=== PATIENT | female | born 1970 | race Two or more races ===

== ENCOUNTER 2018-06-03 14:45 | Emergency (ER) | payer OTHER ==
[~2018-06-03] VITALS: Ht 162.6 cm; Wt 81.6 kg
[~2018-06-03 14:45] MED LIST: UNOBMED
[2018-06-03 14:50] VITALS: BP 127/76
[2018-06-03] MEDS ORDERED: LORazepam 1mg tab ORAL ONE (15:15)
[2018-06-03 16:02] LABS: BASOPHILS % (AUTO) 1.2 % (0.0-2.0); HEMATOCRIT 44.7 % (37.0-47.0); HEMOGLOBIN 15.3 G/DL (12.0-16.0); LYMPHOCYTES % (AUTO) 30.6 % (20.0-45.0); MEAN CORPUSCULAR VOLUME 91 FL (80-99); MONOCYTES % (AUTO) 5.2 % (1.0-10.0); NEUTROPHILS % (AUTO) 61.1 % (45.0-75.0); PLATELET COUNT 307 K/UL (150-450); RED CELL DISTRIBUTION WIDTH 11.8 % (11.6-14.8); WHITE BLOOD COUNT 8.3 K/UL (4.8-10.8)
[2018-06-03 16:13] LABS: ALANINE AMINOTRANSFERASE 43 U/L (12-78); ALBUMIN 3.6 G/DL (3.4-5.0); ALBUMIN/GLOBULIN RATIO 0.8 (1.0-2.7); ALKALINE PHOSPHATASE 82 U/L (46-116); ANION GAP 12 mmol/L (5-15); ASPARTATE AMINO TRANSFERASE 27 U/L (15-37); BILIRUBIN,TOTAL 0.5 MG/DL (0.2-1.0); CALCIUM 9.5 MG/DL (8.5-10.1); CARBON DIOXIDE 26 MMOL/L (21-32); CHLORIDE 99 MMOL/L (98-107); CREATININE 0.8 MG/DL (0.55-1.30); POTASSIUM 3.5 MMOL/L (3.5-5.1); SODIUM 137 MMOL/L (136-145)
[2018-06-03] MEDS ORDERED: Haloperidol 5mg/ml Inj IM ONE (16:15)
--- NOTE | 2018-06-03 16:18 | Emergency Room Report ---
History of Present Illness General Chief Complaint: Behavioral Complaint Source: Patient Present Illness HPI Patient present by paramedics Reports behavioral change Patient here gives a fairly clear history she reports that she was working There was an open bottle of Coconut water she did drink some of that Soon after that patient reports different descriptions of sensation of bloating in the air Things happening fast and then slow Patient reports that this felt similar to when patient's described drugs Denies any headache denies any chest pain Patient reports taking antidepressant medications as well Denies any change in medications recently Patient also reports that she was handling a white flour And after shaking the flour she also had a similar sensation of things happening fast and then slow Denies any chest pain she did have some mild palpitations initially Does have started to improve Denies any focal weakness Denies any suicidal or homicidal thoughts Allergies: Coded Allergies: PENICILLINS (Verified Allergy, Unknown, 06/03/18) Patient History Past Medical History: see triage record Pertinent Family History: none Last Menstrual Period: 05/2018 Now: No Reviewed Nursing Documentation: PMH: Agreed; PSxH: Agreed Nursing Documentation-PMH Hx Hypertension: Yes History Of Psychiatric Problem: Yes - anxiety Review of Systems All Other Systems: negative except mentioned in HPI Physical Exam Vital Signs Date Time Temp Pulse Resp B/P (MAP) Pulse Ox O2 Delivery O2 Flow Rate FiO2 06/03/18 14:31 98.6 120 18 169/105 99 Room Air Sp02 EP Interpretation: reviewed, normal General Appearance: no apparent distress - However intermittently the patient cries out becomes tearful Head: normocephalic, atraumatic Eyes: bilateral eye PERRL, bilateral eye EOMI ENT: hearing grossly normal, normal pharynx Neck: supple Respiratory: lungs clear Cardiovascular #1: regular rate, rhythm Gastrointestinal: non tender, soft Musculoskeletal: normal inspection Neurologic: alert, oriented x3, responsive Psychiatric: other - Patient becomes tearful, cries out, however denies any suicidal or homicidal thoughts Skin: no rash, warm/dry Lymphatic: no adenopathy Medical Decision Making Diagnostic Impression: Primary Impression: Adverse reaction to cannabis ER Course Multiple differentials considered patient had fairly extensive blood work and drug testing performed Patient does show positive marijuana Which is consistent with some of her description and sensations Not clear if the exposure was from the open bottle that she drank at work Versus other use Patient was otherwise seen by psychiatry as well Cleared from psychiatric aspect patient continues not to have any suicidal or homicidal thoughts Medically patient has appropriate findings Appears to be having a reaction to marijuana Patient was recommended for further medications through psychiatry as well these were provided Patient is allowed to rest attempts are being made to contact family Labs Test 06/03/18 15:20 06/03/18 15:35 White Blood Count 8.3 K/UL (4.8-10.8) Red Blood Count 4.90 M/UL (4.20-5.40) Hemoglobin 15.3 G/DL (12.0-16.0) Hematocrit 44.7 % (37.0-47.0) Mean Corpuscular Volume 91 FL (80-99) Mean Corpuscular Hemoglobin 31.2 PG (27.0-31.0) Mean Corpuscular Hemoglobin Concent 34.2 G/DL (32.0-36.0) Red Cell Distribution Width 11.8 % (11.6-14.8) Platelet Count 307 K/UL (150-450) Mean Platelet Volume 5.9 FL (6.5-10.1) Neutrophils (%) (Auto) 61.1 % (45.0-75.0) Lymphocytes (%) (Auto) 30.6 % (20.0-45.0) Monocytes (%) (Auto) 5.2 % (1.0-10.0) Eosinophils (%) (Auto) 2.0 % (0.0-3.0) Basophils (%) (Auto) 1.2 % (0.0-2.0) Sodium Level 137 MMOL/L (136-145) Potassium Level 3.5 MMOL/L (3.5-5.1) Chloride Level 99 MMOL/L (98-107) Carbon Dioxide Level 26 MMOL/L (21-32) Anion Gap 12 mmol/L (5-15) Blood Urea Nitrogen 14 mg/dL (7-18) Creatinine 0.8 MG/DL (0.55-1.30) Estimat Glomerular Filtration Rate > 60 mL/min (>60) Glucose Level 136 MG/DL (74-106) Calcium Level 9.5 MG/DL (8.5-10.1) Total Bilirubin 0.5 MG/DL (0.2-1.0) Aspartate Amino Transf (AST/SGOT) 27 U/L (15-37) Alanine Aminotransferase (ALT/SGPT) 43 U/L (12-78) Alkaline Phosphatase 82 U/L (46-116) Total Protein 8.1 G/DL (6.4-8.2) Albumin 3.6 G/DL (3.4-5.0) Globulin 4.5 g/dL Albumin/Globulin Ratio 0.8 (1.0-2.7) Salicylates Level 0.8 ug/mL (2.8-20) Acetaminophen Level < 2 MCG/ML (10-30) Serum Alcohol 3 mg/dL Urine Opiates Screen Negative (NEGATIVE) Urine Barbiturates Screen Negative (NEGATIVE) Phencyclidine (PCP) Screen Negative (NEGATIVE) Urine Amphetamines Screen Negative (NEGATIVE) Urine Benzodiazepines Screen Negative (NEGATIVE) Urine Cocaine Screen Negative (NEGATIVE) Urine Marijuana (THC) Screen Positive (NEGATIVE) Last Vital Signs Date Time Temp Pulse Resp B/P (MAP) Pulse Ox O2 Delivery O2 Flow Rate FiO2 06/03/18 14:50 86 18 Room Air 06/03/18 14:50 98.6 127/76 100 Status: improved Disposition: HOME, SELF-CARE Condition: Improved Referrals: [facility],REFERRING (PCP) Additional Instructions: Patient is provided with the discharge instructions notified to follow up with primary doctor in the next 2-3 days otherwise return to the er with any worsening symptoms. Please note that this report is being documented using [employer] technology. This can lead to erroneous entry secondary to incorrect interpretation by the dictating instrument. Dina Berg DO Jun 03, 2018 16:18
[2018-06-03 16:20] LABS: BLOOD UREA NITROGEN 14 mg/dL (7-18)
[2018-06-03 17:00] VITALS: BP 102/57
--- NOTE | 2018-06-03 19:45 | Consultation ---
History of Present Illness General Chief Complaint: Behavioral Complaint Present Illness HPI the patient is a 47 yo female with no significant medical hx present by paramedics for behavioral change. The patient reports that she was working There was an open bottle of Coconut water in the fridge and she did drink some of that shortly there after the patient reports change of sensation of bloating in the air shortness of breath agitation. the pt was screaming and crying stated that she has an episode like this at age 17 when she first used mj. the pt stated maybe there was mj in the juice. the pt denied st. she was paranoid and at some point she became tangential and started to yell. no si/hi Allergies: Coded Allergies: PENICILLINS (Verified Allergy, Unknown, 06/03/18) Medication History Miscellaneous Medications Unable to Obtain Medications (Unable To Obtain Meds), (Reported) Patient History History Provided By: Patient, Medical Record, PMD Healthcare decision maker Resuscitation status Advanced Directive on File Past Medical/Surgical History Past Medical/Surgical History: (1) Adverse reaction to cannabis Review of Systems Psychiatric: Reports: prior hx, anxiety, emotional problems, hallucinations Physical Exam General Appearance: alert, severe distress, agitated, obese Neurologic: oriented x 3, responsive, depressed affect Last 24 Hour Vital Signs Date Time Temp Pulse Resp B/P (MAP) Pulse Ox O2 Delivery O2 Flow Rate FiO2 06/03/18 17:00 90 12 102/57 96 Room Air 06/03/18 14:50 86 18 Room Air 06/03/18 14:50 98.6 86 18 127/76 100 Room Air 06/03/18 14:31 98.6 120 18 169/105 99 Room Air Laboratory Tests Test 06/03/18 15:20 06/03/18 15:35 White Blood Count 8.3 K/UL (4.8-10.8) Red Blood Count 4.90 M/UL (4.20-5.40) Hemoglobin 15.3 G/DL (12.0-16.0) Hematocrit 44.7 % (37.0-47.0) Mean Corpuscular Volume 91 FL (80-99) Mean Corpuscular Hemoglobin 31.2 PG (27.0-31.0) H Mean Corpuscular Hemoglobin Concent 34.2 G/DL (32.0-36.0) Red Cell Distribution Width 11.8 % (11.6-14.8) Platelet Count 307 K/UL (150-450) Mean Platelet Volume 5.9 FL (6.5-10.1) L Neutrophils (%) (Auto) 61.1 % (45.0-75.0) Lymphocytes (%) (Auto) 30.6 % (20.0-45.0) Monocytes (%) (Auto) 5.2 % (1.0-10.0) Eosinophils (%) (Auto) 2.0 % (0.0-3.0) Basophils (%) (Auto) 1.2 % (0.0-2.0) Sodium Level 137 MMOL/L (136-145) Potassium Level 3.5 MMOL/L (3.5-5.1) Chloride Level 99 MMOL/L (98-107) Carbon Dioxide Level 26 MMOL/L (21-32) Anion Gap 12 mmol/L (5-15) Blood Urea Nitrogen 14 mg/dL (7-18) Creatinine 0.8 MG/DL (0.55-1.30) Estimat Glomerular Filtration Rate > 60 mL/min (>60) Glucose Level 136 MG/DL (74-106) H Calcium Level 9.5 MG/DL (8.5-10.1) Total Bilirubin 0.5 MG/DL (0.2-1.0) Aspartate Amino Transf (AST/SGOT) 27 U/L (15-37) Alanine Aminotransferase (ALT/SGPT) 43 U/L (12-78) Alkaline Phosphatase 82 U/L (46-116) Total Protein 8.1 G/DL (6.4-8.2) Albumin 3.6 G/DL (3.4-5.0) Globulin 4.5 g/dL Albumin/Globulin Ratio 0.8 (1.0-2.7) L Salicylates Level 0.8 ug/mL (2.8-20) L Acetaminophen Level < 2 MCG/ML (10-30) L Serum Alcohol 3 mg/dL Urine Opiates Screen Negative (NEGATIVE) Urine Barbiturates Screen Negative (NEGATIVE) Phencyclidine (PCP) Screen Negative (NEGATIVE) Urine Amphetamines Screen Negative (NEGATIVE) Urine Benzodiazepines Screen Negative (NEGATIVE) Urine Cocaine Screen Negative (NEGATIVE) Urine Marijuana (THC) Screen Positive (NEGATIVE) H Height (Feet): 5 Height (Inches): 4.00 Weight (Pounds): 180 Assessment/Plan Status: stable Assessment/Plan substance induced psychosis cannabis -haldol -ativan benadryl the pt should be discharged after she is more stable the pt is not at imminent dts/dto no [id number] Pam Gomez MD Jun 03, 2018 19:45
[2018-06-03 21:51] VITALS: BP 105/63
== END 2018-06-03 21:51 | disposition home or self-care (01) ==
LOC: EDBD 14:45 → EMR 16:02
DX: T40.7X5A Adverse effect of cannabis (derivatives), initial encounter (principal); Y92.9 Unspecified place or not applicable; Z88.0 Allergy status to penicillin; I10 Essential (primary) hypertension
CPT/HCPCS: 36415; 80053; 80307; 80329; 85025; 96372; 99284; J1630